=== PATIENT | male | born 2000 | race African-American/Black ===

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

== ENCOUNTER 2018-06-15 07:17 | Emergency (ER) | payer MEDICAID ==
[2018-06-15 07:27] VITALS: BP 149/75
[2018-06-15] MEDS ORDERED: DEXAMETHASONE 4 MG TABLET PO ONE (08:45)
--- NOTE | 2018-06-15 08:54 | ER Document Report ---
ED General - General Chief Complaint: Sore Throat Stated Complaint: SORE THROAT Time Seen by Provider: 06/15/18 08:28 TRAVEL OUTSIDE OF THE [place] IN LAST 30 DAYS: No - HPI Notes: Patient is a 18-year-old male that presents to the emergency department for chief complaint of sore throat. Patient states he woke up today with a sore throat. He denies any associated nausea, vomiting, fevers, chills, chest pain, cough and shortness of breath. He states it is worse in the left but the pain is bilateral. He describes it as a scratchy sharp feeling. He is able to tolerate oral intake. He denies any sick contacts. He states otherwise he is feeling well. Past Medical History: Negative Past Surgical History: Negative Social History: Denies drugs alcohol and tobacco Family History: Reviewed and noncontributory for presenting illness Allergies: Reviewed, see documented allergy list. REVIEW OF SYSTEMS: CONSTITUTIONAL : No fever No chills No diaphoresis No recent illness EENT: No vision changes No congestion sore throat CARDIOVASCULAR: No chest pain No palpitations RESPIRATORY: No shortness of breath No cough No difficulty breathing GASTROINTESTINAL: No abdominal pain No nausea No vomiting No diarrhea GENITOURINARY: No dysuria No hematuria No difficulty urinating MUSCULOSKELETAL: No back pain No leg pain No arm pain SKIN: No rashes No lesions LYMPHATIC: No swollen, enlarged glands. NEUROLOGICAL: No lightheadedness No headache No weakness No paresthesias PSYCHIATRIC: No anxiety No depression PHYSICAL EXAMINATION: Vital signs reviewed, nursing noted reviewed. GENERAL: Well-appearing, well-nourished and in no acute distress. HEAD: Atraumatic, normocephalic. EYES: Eyes appear normal, extraocular movements intact, sclera anicteric, conjunctiva are normal. ENT: nares patent, oropharynx mildly erythematous without exudates. Moist mucous membranes. No sublingual edema NECK: Normal range of motion, supple with anterior chain lymphadenopathy LUNGS: Breath sounds clear to auscultation bilaterally and equal. No wheezes rales or rhonchi. HEART: Regular rate and rhythm without murmurs ABDOMEN: Soft, nontender, normoactive bowel sounds. No rebound, guarding, or rigidity. No masses appreciated. EXTREMITIES: Nontender, good range of motion, no pitting or edema. NEUROLOGICAL: No focal neurological deficits. Moves all extremities spontaneously Motor and sensory grossly intact on exam. PSYCH: Normal mood, normal affect. SKIN: Warm, Dry, normal turgor, no rashes or lesions noted on exposed skin - Related Data Allergies/Adverse Reactions: No Known Allergies Allergy (Verified 06/15/18 07:19) Past Medical History - Social History Smoking Status: Never Smoker Family History: Reviewed & Not Pertinent Renal/ Medical History: Denies: Hx Peritoneal Dialysis Physical Exam - Vital signs Vitals: Temp Pulse BP Pulse Ox 98.8 F 63 149/75 H 98 06/15/18 07:26 06/15/18 07:26 06/15/18 07:26 06/15/18 07:26 Course - Re-evaluation Re-evalutation: 06/15/18 08:53 Vitals reviewed. Nursing notes reviewed. Patient has rapid strep negative. He is afebrile and nontoxic in appearance. His oropharynx appears mildly erythematous but there is no sign of peritonsillar abscess. He is speaking well and tolerating oral intake. Patient was given Decadron for symptomatic management. He will be discharged home in stable condition. He was told to return for new or worsening symptoms. He is in agreement with this plan. Laboratory 06/15/18 08:15 Group A Strep Rapid NEGATIVE - Vital Signs Vital signs: Temp Pulse Resp BP Pulse Ox 98.8 F 63 149/75 H 98 06/15/18 07:26 06/15/18 07:26 06/15/18 07:26 06/15/18 07:26 Discharge - Discharge Clinical Impression: Pharyngitis Qualifiers: Pharyngitis/tonsillitis etiology: unspecified etiology Qualified Code(s): J02.9 - Acute pharyngitis, unspecified Condition: Stable Disposition: HOME, SELF-CARE Instructions: Sore Throat ([facility]), Family Physicians / Practices Additional Instructions: Please return to the emergency department if you have any worsening, or concern of your symptoms. Please return to the emergency department if you develop chest pain, difficulty breathing, severe abdominal pain, or ongoing vomiting. Please follow-up with your primary care physician in 2-3 days and any other recommended physicians. If prescribed, take all medications as directed. If you have any questions or concerns do not hesitate to return the emergency department for evaluation. Referrals: [facility] [Provider Group] - Follow up in 3-5 days
== END 2018-06-15 09:19 | disposition home or self-care (01) ==
LOC: ER 07:17
DX: J02.9 Acute pharyngitis, unspecified (principal)
CPT/HCPCS: 99283; 87070; 87880; J3490

== ENCOUNTER 2019-03-27 17:24 | Emergency (ER) | payer MEDICAID ==
--- NOTE | 2019-03-27 18:01 | ER Document Report ---
ED Medical Screen (RME) - General Chief Complaint: Headache Stated Complaint: HEADACHE Time Seen by Provider: 03/27/19 18:00 Mode of Arrival: Ambulatory Information source: Patient Notes: 18-year-old male presented to ED for complaint of headache no nausea or vomiting. He does have a history of migraines. He states he has been prescribed migraine medicine in the past. He states he was supposed to go to work but could not go to work due to the headache so he came to the emergency room to get help with a headache. He is alert oriented respirations regular nonlabored speaking in full sentences. He denies smoking, alcohol and any use of illicit drugs. He states he has asthma and allergies. I have greeted and performed a rapid initial assessment of this patient. A comprehensive ED assessment and evaluation of the patient, analysis of test results and completion of medical decision making process will be conducted by an additional ED providers. TRAVEL OUTSIDE OF THE [place] IN LAST 30 DAYS: No - Related Data Allergies/Adverse Reactions: No Known Allergies Allergy (Verified 06/15/18 07:19) Past Medical History Renal/ Medical History: Denies: Hx Peritoneal Dialysis Physical Exam - Vital signs Vitals: Temp Pulse Resp BP Pulse Ox 98.2 F 67 16 141/71 H 98 03/27/19 17:39 03/27/19 17:39 03/27/19 17:39 03/27/19 17:39 03/27/19 17:39 Course - Vital Signs Vital signs: Temp Pulse Resp BP Pulse Ox 98.2 F 67 16 141/71 H 98 03/27/19 17:39 03/27/19 17:39 03/27/19 17:39 03/27/19 17:39 03/27/19 17:39
[2019-03-27] MEDS ORDERED: KETOROLAC TROMETHAMINE INJ/PF 30 MG/1 ML SDV IV ONE (20:36)
[2019-03-27] MEDS ORDERED: DIPHENHYDRAMINE HCL 50 MG/ML VIAL IV ONE (20:37)
[2019-03-27] MEDS ORDERED: METOCLOPRAMIDE HCL INJ/PF 10 MG/2 ML SDV IV ONE (20:37)
[2019-03-27] MEDS ORDERED: NORMAL SALINE 1000 ML 1,000 ML IV ONE (20:37)
--- NOTE | 2019-03-27 20:41 | ER Document Report ---
ED General - General Chief Complaint: Headache Stated Complaint: HEADACHE Time Seen by Provider: 03/27/19 18:00 Mode of Arrival: Ambulatory TRAVEL OUTSIDE OF THE [place] IN LAST 30 DAYS: No - HPI Notes: Patient is a 18-year-old male who presents emergency department for evaluation of migraine headache. It is frontal in nature. He had a similar headache in November and was treated in [place]. He was sent home with medication, he is unsure as to what it was, which she states did not help. It was not sudden in onset, more gradual. He describes associated photo and phonophobia. He denies any fevers or chills. No neck stiffness. No sore throat. He is seeing, speaking, swallowing without difficulty. He tried some Naprosyn without significant relief. - Related Data Allergies/Adverse Reactions: No Known Allergies Allergy (Verified 06/15/18 07:19) Home Medications: Zyrtec. Claritin Past Medical History - General Information source: Patient - Social History Smoking Status: Never Smoker Frequency of alcohol use: None Drug Abuse: None Family History: Reviewed & Not Pertinent Patient has suicidal ideation: No Patient has homicidal ideation: No Pulmonary Medical History: Reports: Hx Asthma Neurological Medical History: Reports: Hx Migraine Renal/ Medical History: Denies: Hx Peritoneal Dialysis Past Surgical History: Reports: Hx Oral Surgery - wisdom teeth Review of Systems - Review of Systems Constitutional: No symptoms reported EENT: No symptoms reported Cardiovascular: No symptoms reported Respiratory: No symptoms reported Gastrointestinal: Nausea Genitourinary: No symptoms reported Musculoskeletal: No symptoms reported Skin: No symptoms reported Neurological/Psychological: No symptoms reported Physical Exam - Vital signs Vitals: Temp Pulse Resp BP Pulse Ox 98.2 F 67 16 141/71 H 98 03/27/19 17:39 03/27/19 17:39 03/27/19 17:39 03/27/19 17:39 03/27/19 17:39 - Notes Notes: Vital signs reviewed, please refer to chart. Head is normocephalic, atraumatic. Pupils equal round, reactive to light. Oral mucosa is moist, pharynx is without erythema or exudate. Neck is supple without meningismus. Heart is regular rate and rhythm. Lungs are clear to auscultation bilaterally. Abdomen is soft, nontender, normoactive bowel sounds throughout. Extremities without cyanosis, clubbing. Posterior calves are nontender. Peripheral pulses are equal. Skin is warm and dry. Patient is awake, alert, oriented x3. Cranial nerves II - XII are grossly intact without focal neurological deficits. Strength is plus 5 out of 5 bilateral upper and lower extremities. Sensation is intact. Reflexes symmetrical. Intact [id number], rapid alternating movements, [id number]. Course - Re-evaluation Re-evalutation: 03/27/19 20:41 Patient presents emergency department for evaluation. He has what he describes as a typical migraine. He has no neurological deficits, no meningeal signs. I will go ahead and medicate him with a typical migraine cocktail and some IV fluids. He is advised to follow-up closely with primary care, return to the ED with worsening. - Vital Signs Vital signs: Temp Pulse Resp BP Pulse Ox 98.2 F 67 16 141/71 H 98 03/27/19 17:39 03/27/19 17:39 03/27/19 17:39 03/27/19 17:39 03/27/19 17:39 Discharge - Discharge Clinical Impression: Migraine headache Qualifiers: Migraine type: without aura Intractability: not intractable Condition: Stable Disposition: HOME, SELF-CARE Instructions: Antinausea Medication ([facility]), Toradol Injection ([facility]), Headache ([facility]) Additional Instructions: Rest, stay well-hydrated. Follow-up closely with primary care in regards to your headaches. If you develop increased pain, difficulty seeing, speaking, swallowing, difficulty moving her arms or legs, or any other new or concerning symptoms of any sort, please return immediately to the emergency department for reevaluation.
[2019-03-27 22:01] VITALS: BP 129/56
== END 2019-03-27 22:01 | disposition home or self-care (01) ==
LOC: ER 17:24
DX: G43.909 Migraine, unspecified, not intractable, without status migrainosus (principal); R11.0 Nausea
CPT/HCPCS: J1200; J1885; J2765; J7030; 96374; 96375; 99283

== ENCOUNTER 2019-06-14 18:26 | Emergency (ER) | payer MEDICAID ==
--- NOTE | 2019-06-14 18:41 | ER Document Report ---
ED Medical Screen (RME) - General Chief Complaint: Skin Problem Stated Complaint: SKIN ISSUE Time Seen by Provider: 06/14/19 18:35 Mode of Arrival: Ambulatory Information source: Patient Notes: Patient presents to the emergency department with rash to the back of his hands for the past 2 months. Reports possible reaction to the gloves he wears at work at [employer]. Also has an abscess to the right upper lateral back. Reports started with a bug bite approximately 1 week ago larger couple days ago and he squeezed it and got some drainage out of it 2 days ago. Reports he placed peroxide on it. Denies history of MRSA. I have greeted and performed a rapid initial assessment of this patient. A comprehensive ED assessment and evaluation of the patient, analysis of test results and completion of the medical decision making process will be conducted by additional ED providers. TRAVEL OUTSIDE OF THE [place] IN LAST 30 DAYS: No - Related Data Allergies/Adverse Reactions: No Known Allergies Allergy (Verified 06/14/19 18:33) Past Medical History Pulmonary Medical History: Reports: Hx Asthma Neurological Medical History: Reports: Hx Migraine Renal/ Medical History: Denies: Hx Peritoneal Dialysis Past Surgical History: Reports: Hx Oral Surgery - wisdom teeth Physical Exam - Vital signs Vitals: Temp Pulse Resp BP Pulse Ox 97.9 F 70 20 129/68 H 99 06/14/19 18:32 06/14/19 18:32 06/14/19 18:32 06/14/19 18:32 06/14/19 18:32 Course - Vital Signs Vital signs: Temp Pulse Resp BP Pulse Ox 97.9 F 70 20 129/68 H 99 06/14/19 18:32 06/14/19 18:32 06/14/19 18:32 06/14/19 18:32 06/14/19 18:32
[2019-06-14] MEDS ORDERED: LIDOCAINE 1%/EPINEPHRINE INJ 20 ML VIAL INJ ONE (19:29)
[2019-06-14] MEDS ORDERED: PREDNISONE 20 MG TABLET PO ONE (19:29)
[2019-06-14] MEDS ORDERED: SULFAMETHOXAZOLE/TRIMETHOPRIM 800-160 MG TABLET PO ONE (19:29)
--- NOTE | 2019-06-14 19:35 | ER Document Report ---
ED General - General Chief Complaint: Abscess Stated Complaint: SKIN ISSUE Time Seen by Provider: 06/14/19 18:35 Primary Care Provider: VARGHESE EDGE MD [ACTIVE STAFF] - Follow up as needed Mode of Arrival: Ambulatory Notes: CHIEF COMPLAINT: Rash on hands, abscess right back HPI: 18-year-old male presenting to the emergency department complaining of a pruritic rash on the bilateral hands over the last several days. Patient does wear an powdered latex gloves at work. He is concerned he might be allergic to the gloves. Patient has been using Eucerin cream on the hands with some resolution of the rash. Patient also reports a tender area on the right thoracic back that he is concerned about being an abscess. States the area did drain some purulent material several days ago but is not draining currently and has gotten larger. No fever. No prior history of skin infections ROS: See HPI - all other systems were reviewed and are otherwise negative Constitutional: no fever Integumentary: + rash Allergy: no hives Musculoskeletal: no extremity pain or swelling Neurological: no numbness/tingling, no weakness MEDICATIONS: I agree with the patient medications as charted by the RN. ALLERGIES: I agree with the allergies as charted by the RN. PAST MEDICAL HISTORY/PAST SURGICAL HISTORY: Reviewed and agree as charted by RN. SOCIAL HISTORY: Reviewed and agree as charted by RN. FAMILY HISTORY: No significant familial comorbid conditions directly related to patient complaint EXAM: Reviewed vital signs as charted by RN. CONSTITUTIONAL: Alert and oriented and responds appropriately to questions. Well-appearing; well-nourished. Mild distress secondary to discomfort HEAD: Normocephalic; atraumatic EYES: conjunctivae clear, sclerae non-icteric ENT: normal nose; no rhinorrhea; moist mucous membranes NECK: Supple without meningismus; non-tender; no cervical lymphadenopathy, no masses CARD: symmetric distal pulses RESP: Normal chest excursion without splinting or tachypnea ABD/GI: non-distended BACK: The back appears normal. There is a raised erythematous area measuring 3 cm x 2 cm that is mildly indurated and fluctuant in the right lateral thoracic back adjacent to the right axilla EXT: Normal ROM in all joints; non-tender to palpation; no cyanosis, no effusions, no edema SKIN: Normal color for age and race; warm; dry; good turgor; raised erythematous rash to the dorsum of the bilateral hands, does extend in a glove distribution stopping at the wrists. No petechia purpura or vesicles. No rash between the fingers or on the palms of the hands NEURO: Moves all extremities equally; Motor and sensory function intact PSYCH: The patient's mood and manner are appropriate. Grooming and personal hygiene are appropriate. MDM: 18-year-old male presenting with what is likely a contact dermatitis on the bilateral hands will place him on a short course of steroids. He also has an abscess to the right thoracic back that I will incise and drain, will place patient on Bactrim to cover for MRSA. TRAVEL OUTSIDE OF THE [place] IN LAST 30 DAYS: No - Related Data Allergies/Adverse Reactions: No Known Allergies Allergy (Verified 06/14/19 18:33) Past Medical History - General Information source: Patient - Social History Smoking Status: Never Smoker Frequency of alcohol use: None Drug Abuse: None Family History: Reviewed & Not Pertinent Patient has suicidal ideation: No Patient has homicidal ideation: No Pulmonary Medical History: Reports: Hx Asthma Neurological Medical History: Reports: Hx Migraine Renal/ Medical History: Denies: Hx Peritoneal Dialysis Past Surgical History: Reports: Hx Oral Surgery - wisdom teeth Physical Exam - Vital signs Vitals: Temp Pulse Resp BP Pulse Ox 97.9 F 70 20 129/68 H 99 06/14/19 18:32 06/14/19 18:32 06/14/19 18:32 06/14/19 18:32 06/14/19 18:32 Course - Vital Signs Vital signs: Temp Pulse Resp BP Pulse Ox 97.9 F 70 20 129/68 H 99 06/14/19 18:32 06/14/19 18:32 06/14/19 18:32 06/14/19 18:32 06/14/19 18:32 Procedures - Incision and Drainage Right Lateral Back Time completed: 20:13 Type: Simple Anesthetic type: 1% Lidocaine w/epi mL's of anesthetic: 1 Blade size: 11 I&D procedure: Chlorprep applied, Iodoform packing placed, Sterile dressing applied Incision Method: Incision made by scalpel Amount/type of drainage: 2 Discharge - Discharge Clinical Impression: Abscess of back Contact dermatitis Qualifiers: Contact dermatitis type: unspecified Contact dermatitis trigger: unspecified trigger Qualified Code(s): L25.9 - Unspecified contact dermatitis, unspecified cause Condition: Stable Disposition: HOME, SELF-CARE Instructions: Abscess ([facility]), Post Incision and Drainage, Trimethoprim-Sulfa ([facility]) Additional Instructions: Take the antibiotics as prescribed. Warm compresses to the abscess area twice daily to encourage drainage. Remove the packing on day 3 and cover the area until healed. Follow-up with your primary care provider for reevaluation. Take the steroids to treat the dermatitis on the hands. If there is some concern for the rash with the latex gloves you will likely need to have testing done through the Workmen's Compensation program to determine a definitive allergy Prescriptions: Sulfamethoxazole/Trimethoprim [Bactrim Ds Tablet] 2 each PO BID #28 tablet Prednisone [Deltasone 20 mg Tablet] 2 tab PO DAILY 5 Days tablet Hydrocodone/Acetaminophen [Tyrone 5-325 mg Tablet] 1 tab PO Q6 #10 tablet Referrals: VARGHESE EDGE MD [ACTIVE STAFF] - Follow up as needed
[2019-06-14] MEDS ORDERED: LIDOCAINE 1% INJ-PF (10 MG/ML) 30 ML SDV ONE (19:49)
[2019-06-14] MEDS ORDERED: LIDOCAINE 1% INJ-PF (10 MG/ML) 30 ML SDV INJ ONE (20:04)
[2019-06-14] MEDS ORDERED: HYDROCODONE/ACETAMINOPHEN 5-325 MG TABLET PO ONE (20:12)
[2019-06-14 20:50] VITALS: BP 130/70
== END 2019-06-14 20:47 | disposition home or self-care (01) ==
LOC: ER 18:26
PROC: 0H96XZZ Drainage of Back Skin, External Approach (ICD-10-PCS; principal; 2019-06-14)
DX: L02.212 Cutaneous abscess of back [any part, except buttock and flank] (principal); L25.9 Unspecified contact dermatitis, unspecified cause; R21 Rash and other nonspecific skin eruption
CPT/HCPCS: 99283; 10060; A6266; J3490 ×2; J7512

== ENCOUNTER 2019-07-16 19:39 | Emergency (ER) | payer MEDICAID ==
[2019-07-16 20:45] VITALS: BP 140/67
[2019-07-16] MEDS ORDERED: KETOROLAC TROMETHAMINE INJ/PF 30 MG/1 ML SDV IV ONE (21:11)
[2019-07-16] MEDS ORDERED: PROCHLORPERAZINE EDISYLATE INJ 10 MG/2 ML VIAL IV ONE (21:11)
[2019-07-16] MEDS ORDERED: NORMAL SALINE 500 ML IV ONE (21:11)
[2019-07-16] MEDS ORDERED: DIPHENHYDRAMINE HCL 50 MG/ML VIAL IV ONE (21:11)
--- NOTE | 2019-07-16 21:12 | ER Document Report ---
ED Medical Screen (RME) - General Chief Complaint: Headache Stated Complaint: HEAD PAIN/FALL Time Seen by Provider: 07/16/19 21:06 TRAVEL OUTSIDE OF THE [place] IN LAST 30 DAYS: No - HPI Notes: 07/16/19 21:11 Patient is a 19-year-old male with a history of migraines who presents complaining of headache that began a few hours ago that mimics previous migraines. Patient states that he did have a head injury and was seen at [facility] with unremarkable work-up and exams for any brain bleed or fracture status post head injury. Patient states that he has had an intermittent headache since then. This is not the worst headache of his life and did not start as a thunderclap. Patient believes this to be 1 of his migraines. He does have light sensitivity and some nausea. He is otherwise acting and beh aving normally per significant other and his speech is normal. Denies any fever, new head injury, neck pain, changes in vision/speech/mentation/hearing, URI, sore throat, chest pain, palpitations, syncope, cough, shortness of breath, wheeze, dyspnea, abdominal pain, vomiting/diarrhea, urinary retention, dysuria, hematuria, loss of control of bowel or bladder, numbness/tingling, saddle anesthesia, muscle paralysis/weakness, or rash. I have treated and performed a rapid initial assessment of this patient. A comprehensive ED assessment and evaluation of the patient, analysis of test results and completion of medical decision making process will be conducted by additional ED providers. PHYSICAL EXAMINATION: GENERAL: Well-appearing, well-nourished and in no acute distress. A&Ox4. Answers questions appropriately. Neuro: Cranial nerves grossly intact, NIH 0, GCS 15. Normal sensory and motor exams. Eyes: PERRLA, EOMI bilaterally. - Related Data Allergies/Adverse Reactions: No Known Allergies Allergy (Verified 06/14/19 18:33) Past Medical History - Social History Chew tobacco use (# tins/day): No Frequency of alcohol use: None Drug Abuse: None Pulmonary Medical History: Reports: Hx Asthma Neurological Medical History: Reports: Hx Migraine Renal/ Medical History: Denies: Hx Peritoneal Dialysis Past Surgical History: Reports: Hx Oral Surgery - wisdom teeth Physical Exam - Vital signs Vitals: Temp Pulse Resp BP Pulse Ox 98.8 F 88 18 140/67 H 98 02/22/20 20:44 07/16/19 20:44 07/16/19 20:44 07/16/19 20:44 07/16/19 20:44 Course - Vital Signs Vital signs: Temp Pulse Resp BP Pulse Ox 98.8 F 88 18 140/67 H 98 07/16/19 20:44 07/16/19 20:44 07/16/19 20:44 07/16/19 20:44 07/16/19 20:44
== END 2019-07-17 01:20 | disposition left against medical advice (07) ==
LOC: ER 19:39
DX: Z53.21 Procedure and treatment not carried out due to patient leaving prior to being seen by health care provider (principal); R51 Headache; J45.909 Unspecified asthma, uncomplicated
CPT/HCPCS: 99281